=== PATIENT | female | born 1955 | race Caucasian/White ===

== ENCOUNTER → 2017-05-20 | Outpatient (CLI) | payer BC ==
--- NOTE | 2017-05-20 09:19 | REPMRS ---
Patient History The patient states she had a clinical breast exam in Patient is postmenopausal. Family history of breast cancer in paternal aunt at age 68. Digital Woman Screen Mammo: May 20, 2017 - Exam #: [id number] Bilateral CC and MLO view(s) were taken. Technologist: Donya Urias, Technologist Prior study comparison: March 27, 2015, digital woman screen mammo performed at [facility]. September 25, 2012, bilateral bilat screen digital mammo, performed at [facility] ([facility]). April 13, 2010, bilateral screening mammogram, performed at [facility] ([facility]). FINDINGS: There are scattered fibroglandular densities. There has been no change in the appearance of the mammogram from the prior studies. There is a mild amount of scattered fibroglandular density which is fairly symmetric. There is no interval development of dominant mass, architectural distortion, or clustered microcalcification suggestive of malignancy. ASSESSMENT: BI-RADS/ACR category 1 mammogram. Negative. Recommendation Routine screening mammogram in 1 year (for women over age 40). This mammogram was interpreted with the aid of an FDA-approved computer-aided dectection system. Electronically Signed By: Charles Olsen MD 05/20/17 0919
--- NOTE | 2017-05-21 10:10 | DEXA ---
AP SPINE L1 - L4 0.936 -2.1 -0.6 LT FEMUR TOTAL 0.618 -3.1 -2.0 RT FEMUR TOTAL 0.682 -2.6 -1.5 TOTAL BODY TOTAL OTHER DUAL FEMUR FRAX* ASSESSMENT Risk factors: Not performed. 10 year probability of fracture Major osteoporotic fracture % Hip fracture % COMMENTS: There is low bone density of the spine. There is osteoporosis of the hips. The density of the spine is decreased 9.9% since the initial exam on 12/2004. The spine density has decreased 2.0% since the most recent exam on 03/2015. The density of the left hip has decreased 7.5% since the initial exam on 12/2004. The density of the left hip has increased 2.3% since the most recent exam on 2014. The density of the right hip has decreased 4.7% since the initial exam on 2004. The density of the right hip has increased 1.2% since the most recent exam on 2014. FOLLOW-UP: Recommendation for the next bone density exam: 2 years. TIP
== END ==
LOC: M WHC 06:38
PROVIDERS: ATTEND Nurse Practitioner Family
DX: Z12.31 Encounter for screening mammogram for malignant neoplasm of breast (principal); M81.0 Age-related osteoporosis without current pathological fracture

== ENCOUNTER 2024-09-01 07:52 | Day surgery (SDC) | payer MEDICARE, BC ==
[~2024-09-01] VITALS: Ht 182.9 cm; Wt 56.7 kg
[~2024-09-01 07:52] MED LIST: ALEN70TA82 PO; MIDAZOLAM INJ 2MG/2ML VIAL As Ordered ONE; PHENYLEPHRINE 10% OPHTH SOL 5ML OD PRN; PRAV10TA3 PO; TIMO0.5S20
[2024-09-01] MEDS: OFLOXACIN 0.3 % (OCUFLOX) OPTH SOL 5ML OD ONE (08:15)
[2024-09-01] MEDS: LIDOCAINE 3.5 % 1ML OPHTH TOPICAL GEL OU ONE (08:15)
[2024-09-01] MEDS: PHENYLEPHRINE 2.5% OPHTH SOL 2ML OD SCH (08:22)
[2024-09-01] MEDS: TROPICAMIDE 1% OPHTH SOLN 15ML OD SCH (08:22)
[2024-09-01] MEDS: CYCLOPENTOLATE 1% OPHTH SOLN 2ML BTL OD SCH (08:22)
[2024-09-01] MEDS ORDERED: LIDOCAINE 1% SDV 5ML VIAL SC PRN (08:25)
[2024-09-01] MEDS: CEFUROXIME 1MG/0.1ML INTRACAMERAL INJ As Ordered ONE (09:52)
[2024-09-01] MEDS: BSS IRRIG/VANCO(10MG)/TOBRA(5MG)/EPINEPH(1:1000-0.5CC)500ML BAG-ORONLY As Ordered ONE (09:52)
[2024-09-01] MEDS: LIDOCAINE 1% SDV 5ML VIAL As Ordered ONE (09:52)
[2024-09-01] MEDS ORDERED: fentaNYL 100 MCG/2 ML INJECTION As Ordered ONE (10:00)
[2024-09-01] MEDS: PROVISC 10 MG/ML 0.85ML SYRINGE As Ordered ONE (10:06)
[2024-09-01 10:19] VITALS: BP 119/74; TEMP 97.9; O2SAT 97
== END 2024-09-01 10:39 | disposition home or self-care (01) ==
LOC: M SDC 07:52
PROVIDERS: ATTEND Ophthalmology
DX: H25.9 Unspecified age-related cataract (principal); H40.1111 Primary open-angle glaucoma, right eye, mild stage; Z79.899 Other long term (current) drug therapy
CPT/HCPCS: 66991; 92015; A4649; C1783; J0697; J2250; J3010; V2787

== ENCOUNTER 2024-09-29 09:20 | Day surgery (SDC) | payer MEDICARE, BC ==
[~2024-09-29] VITALS: Ht 152.4 cm; Wt 57.6 kg
[~2024-09-29 09:20] MED LIST changes: +CYCLOPENTOLATE 1% OPHTH SOLN 2ML BTL OS SCH; +LIDOCAINE 3.5 % 1ML OPHTH TOPICAL GEL OU ONE; -MIDAZOLAM INJ 2MG/2ML VIAL As Ordered ONE; +OFLOXACIN 0.3 % (OCUFLOX) OPTH SOL 5ML OS ONE; -PHENYLEPHRINE 10% OPHTH SOL 5ML OD PRN; +PHENYLEPHRINE 10% OPHTH SOL 5ML OS PRN; +PHENYLEPHRINE 2.5% OPHTH SOL 2ML OS SCH; -TIMO0.5S20; +TIMO0.5S20 OU; +TRAV2.5D OU; +TROPICAMIDE 1% OPHTH SOLN 15ML OS SCH
[2024-09-29] MEDS: LIDOCAINE 3.5 % 1ML OPHTH TOPICAL GEL OU ONE (10:44)
[2024-09-29] MEDS: CYCLOPENTOLATE 1% OPHTH SOLN 2ML BTL OS SCH (10:44)
[2024-09-29] MEDS: OFLOXACIN 0.3 % (OCUFLOX) OPTH SOL 5ML OS ONE (10:44)
[2024-09-29] MEDS: PHENYLEPHRINE 2.5% OPHTH SOL 2ML OS SCH (10:44)
[2024-09-29] MEDS: TROPICAMIDE 1% OPHTH SOLN 15ML OS SCH (10:44)
[2024-09-29] MEDS ORDERED: MIDAZOLAM INJ 2MG/2ML VIAL As Ordered ONE (11:00)
[2024-09-29] MEDS ORDERED: fentaNYL 100 MCG/2 ML INJECTION As Ordered ONE (11:00)
[2024-09-29] MEDS: LIDOCAINE 1% SDV 5ML VIAL As Ordered ONE (12:03)
[2024-09-29] MEDS: BSS IRRIG/VANCO(10MG)/TOBRA(5MG)/EPINEPH(1:1000-0.5CC)500ML BAG-ORONLY As Ordered ONE (12:03)
[2024-09-29] MEDS: CEFUROXIME 1MG/0.1ML INTRACAMERAL INJ As Ordered ONE (12:11)
[2024-09-29] MEDS ORDERED: DUOVISC (0.50ML VISCOAT/0.85ML PROVISC) OPHTH KIT As Ordered ONE (12:19)
[2024-09-29 12:39] VITALS: BP 118/77; TEMP 97.4; O2SAT 98
== END 2024-09-29 12:47 | disposition home or self-care (01) ==
LOC: M SDC 09:20
PROVIDERS: ATTEND Ophthalmology
DX: H25.12 Age-related nuclear cataract, left eye (principal); H40.1121 Primary open-angle glaucoma, left eye, mild stage; Z79.899 Other long term (current) drug therapy; Z98.41 Cataract extraction status, right eye
CPT/HCPCS: 66991; 92015; C1783; J0697; J2250; J3010; V2787